=== PATIENT | male | born 1975 ===

== ENCOUNTER 2016-08-28 12:24 | Day surgery (SDC) | payer BC, OTHER ==
[2016-08-28] MEDS ORDERED: DIAZEPAM 5 MG TAB PO ONE (12:28)
[2016-08-28] MEDS ORDERED: FAMOTIDINE 20 MG TAB PO ONE (12:28)
[2016-08-28] MEDS ORDERED: diphenhydrAMINE 25 MG CAP PO ONE (12:28)
[2016-08-28] MEDS ORDERED: NS 1,000 ML IV ONE (12:28)
[2016-08-28] MEDS ORDERED: ASPIRIN EC 325 MG TAB PO ONE (12:28)
[2016-08-28] MEDS ORDERED: BENZOCAINE UNIT DOSE SPRAY HURRICAINE MM ONE (12:28)
--- NOTE | 2016-08-28 12:46 | CPEKG ---
Heart Rate: 56 RR Interval: 1071 P-R Interval: 172 QRSD Interval: 108 QT Interval: 424 QTC Interval: 410 P [place]: 23 QRS [place]: 97 T Wave [place]: 42 EKG Severity - ABNORMAL ECG - EKG Impression: SINUS RHYTHM EKG Impression: INCOMPLETE RIGHT BUNDLE BRANCH BLOCK EKG Impression: ABNRM R PROG, CONSIDER ASMI OR LEAD PLACEMENT Preliminary Awaiting MD Review
[2016-08-28] MEDS ORDERED: fentaNYL 100 MCG/2 ML INJ IVP ONE (12:51)
[2016-08-28] MEDS ORDERED: MIDAZOLAM 2 MG/2 ML VIAL IVP ONE (12:51)
[2016-08-28] MEDS ORDERED: LIDOCAINE 1% 30 ML SDV ONE (12:57)
[2016-08-28] MEDS ORDERED: IOPAMIDOL (ISOVUE-370) 150 ML BTL IV ONE (12:58)
[2016-08-28] MEDS ORDERED: fentaNYL 100 MCG/2 ML INJ ONE (12:58)
[2016-08-28] MEDS ORDERED: MIDAZOLAM 2 MG/2 ML VIAL ONE (12:58)
[2016-08-28 13:06] LABS: % IMMATURE GRANULYOCYTES 0.2 % (0.0-1.1); ABSOLUTE IMMATURE GRANULOCYTES 0.01 10^3/uL (0.00-0.10); ADD DIFF? NO; ADD MORPH? NO; ADD SCAN? NO; ATYPICAL LYMPHOCYTE FLAG 0 (0-99); FRAGMENT RBC FLAG 0 (0-99); HEMATOCRIT 42.7 % (40.0-51.0); HEMOGLOBIN 15.4 g/dL (13.7-17.5); LEFT SHIFT FLG 0 (0-99); LIPEMIA HEMOLYSIS FLAG 90 (0-99); MEAN CELL HEMOGLOBIN CONCENTR. 36.1 g/dL (32.4-36.7); MEAN CELL VOLUME 91.6 fL (81.5-99.8); MEAN PLATELET VOLUME 10.6 fL (8.7-11.7); PLATELET CLUMPS FLAG 10 (0-99); PLATELET COUNT 202 10^3/uL (150-400); RED BLOOD CELL COUNT 4.66 10^6/uL (4.40-6.38); RED CELL DISTRIBUTION WIDTH 12.8 % (11.5-15.2)
[2016-08-28 13:20] LABS: INR 0.99 (0.83-1.16)
[2016-08-28 13:39] LABS: ANION GAP 11 mEq/L (8-16); CALCIUM 9.8 mg/dL (8.5-10.4); CARBON DIOXIDE 22 mEq/l (22-31); CHLORIDE 109 mEq/L (97-110); CHOLESTEROL 211 mg/dL (140-200); CHOLESTEROL/HDL RATIO 4.22 RATIO (1.00-4.97); CREATININE 1.1 mg/dL (0.7-1.3); GLOMERULAR FILTRATION RATE > 60; GLUCOSE 95 mg/dL (70-100); HIGH DENSITY LIPOPROTEIN 50 mg/dL (40-65); LDL/HDL RATIO 2.38 RATIO (1.00-3.64); LOW DENSITY LIPOPROTEIN 119 mg/dL (70-100); MAGNESIUM 2.1 mg/dL (1.6-2.3); NON-HIGH DENSITY LIPOPROTEIN 161 mg/dL (90-129); POTASSIUM 4.5 mEq/L (3.5-5.2); SODIUM 142 mEq/L (134-144); TRIGLYCERIDE 214 mg/dL (40-150); VERY LOW DENSITY LIPOPROTEINS 42 mg/dL (8-25)
--- NOTE | 2016-08-28 16:42 | CPIP ---
DATE OF PROCEDURE: 08/28/2016 INDICATIONS: The patient 41 years old. He has an abnormal ECG. His workup thus far, including morenita face echocardiography, MRI and CT scan of the chest, has demonstrated findings that suggest possible endocardial cushion defect associated with a large atrial septal defect, a small ventricular septal defect, and potentially a mitral valve abnormality. PROCEDURE: Diagnostic right and left heart catheterization, coronary angiography, left ventriculogr aphy. TECHNIQUE: Following informed consent, the patient was brought to the cardiac catheterization labor [facility] in a fasting state. The right groin was prepped and draped in the usual sterile fashion. Lid ocaine was infiltrated in the skin overlying the femoral artery and femoral veins. Using the modifi ed Seldinger technique, a 7-Yi SafeSheath was placed in the femoral vein and a 6-Yi SafeShea th in the femoral artery. Using the PWP catheter, a complete right heart catheterization was perfor med, including a complete saturation run. Using standard Marty right and left coronary catheters, as well as a pigtail, orthogonal images were obtained of the coronary arteries and left ventriculog devaughn was performed. Following the procedure, all catheters were then removed from the body. FINDINGS: Hemodynamics: The aortic pressure was 112/64/85 mmHg; left ventricular pressure 110/3/22 mmHg. No significant transaortic pressure gradient was noted on pullback. The pulmonary capillary wedge pressure was 8 mmHg; pulmonary artery pressure 32/11/20 mmHg; right ventricular pressure 32/- 2/2 mmHg; right atrial pressure mean of 1 mmHg. A full right heart saturation run was performed. A ortic saturation was 93.3%; pulmonary artery saturation 81.8%; right ventricular saturation 79.9%; s uperior vena cava saturation 82%; high right atrial saturation 80.2%; mid right atrial saturation 80 .8%; low right atrial saturation 77.3%; inferior vena cava saturation 83.4%. The calculated cardiac output by Chelly was 10.9 L/minute with an index of 5.45 L/minute per meter squared. The Qp:Qs was 0 .9. ANGIOGRAPHY: 1. Left main: Left main is a large caliber vessel bifurcating to the left anterior descending and circumflex distributions. Left main coronary artery is angiographically normal. 2. Left anterior descending: Left anterior descending is a moderate caliber vessel. The vessel tr averses the left ventricular apex. There are the usual complement of diagonal branches noted. No o bstructive lesions are noted. 3. Circumflex: Circumflex has 2 obtuse marginal branches, after which it becomes diminutive. The circumflex is angiographically normal. 4. Right coronary artery: Right coronary artery is dominant. The PDA is identified, as well as se veral small posterolateral branches. The right coronary artery is angiographically normal. LEFT VENTRICULOGRAPHY: In RUSSELL, left ventriculogram was performed. This demonstrated an image which is usually seen in the SUDHEER projection. His left ventricular systolic function was noted to be norm al. IMPRESSION: 1. Abnormally position heart within the chest. His heart was markedly horizontal and what appeared to be counterclockwise rotated. 2. Normal right heart catheterization without indications of an intracardiac shunt, and evidence of normal pulmonary artery pressure and pulmonary capillary wedge pressure. 3. Increased cardiac output. 4. Angiographically normal coronary arteries. 5. Normal left ventricular systolic function with an ejection fraction of at least 70%. /[id number]/MODL
== END 2016-08-28 18:58 | disposition home or self-care (01) ==
LOC: FCATH 12:24
PROVIDERS: ATTEND Internal Medicine Cardiovascular Disease
PROC: B2151ZZ Fluoroscopy of Left Heart using Low Osmolar Contrast (ICD-10-PCS; principal; 2016-08-28)
PROC: 4A023N8 Measurement of Cardiac Sampling and Pressure, Bilateral, Percutaneous Approach (ICD-10-PCS; principal; 2016-08-28)
PROC: B246ZZ4 Ultrasonography of Right and Left Heart, Transesophageal (ICD-10-PCS; principal; 2016-08-28)
PROC: B2111ZZ Fluoroscopy of Multiple Coronary Arteries using Low Osmolar Contrast (ICD-10-PCS; principal; 2016-08-28)
DX: R94.31 Abnormal electrocardiogram [ECG] [EKG] (principal); I45.10 Unspecified right bundle-branch block; I34.0 Nonrheumatic mitral (valve) insufficiency; Q21.1 Atrial septal defect; Q21.0 Ventricular septal defect
CPT/HCPCS: C1760; J1644; J2250; J3010; Q9967